=== PATIENT | female | born 1955 | race Caucasian/White ===

== ENCOUNTER 2021-06-15 01:30 | Day surgery (SDC) | payer MEDICARE, SELFPAY ==
[2021-06-03 10:37] VITALS: BMI 41.5
--- NOTE | 2021-06-15 10:13 | WPDANESEPPF ---
Anes - Initial Pre Proc Eval Procedure: Operation Date: 06/15/21 14:00 Proposed Procedures p Screening Colonoscopy - Cosme Singh MD Date/Time: 06/15/21 10:13 Surgeon: Cosme Singh MD Pre Op Diagnosis: neoplasm screening, family hx colon CA Patient Data Age: 65 Gender: F Height: 1.59 m Weight: 104.6 kg Allergies Allergy/AdvReac Type Severity Reaction Status Date / Time No Known Allergies Allergy Verified 06/15/21 13:02 Home Medications Medication Instructions Recorded Confirmed Type ibuprofen [Advil] 200 mg PO DAILY 06/03/21 06/15/21 History io-ve-dzkn-FA-Ca carb-vit K 1 tablet PO DAILY 06/03/21 06/03/21 History [One-A-Day Womens Formula] phentermine 19 mg PO DAILY 06/03/21 06/03/21 History Patient hx anesthesia problems: none Family hx anesthesia problems: none Results Review: All pre-operative results and documents have been reviewed as part of the pre-operative evaluation. [facility] Past Medical History Medical History (Updated 06/15/21 @ 10:14 by Jhon Devine MD) Arthritis Diabetes Morbid obesity with BMI of 40.0-44.9, adult Social History Social History Smoking packs per day: 0.75 Smoking cigarettes per day: 15.0 Years smoked: 21 Smoking pack-years: 15.75 Smoking status: Former smoker Tobacco type: cigarettes Smoking end date: 08/01/98 Alcohol intake: never Substance use: never Substance use type: does not use Living arrangements: alone Spiritual care concerns: No Anes - Eval Final PreProcedure Day of Procedure 06/15/21 10:13 Patient weight: obese Heart: regular rate and rhythm Lungs: clear to auscultation and normal air movement Airway: Mallampati scale class II Neurological: alert and oriented Last oral intake: >/= 8 hours ASA classification: III Emergent: no Anesthetic plan: proceed Anesthesia type and monitoring: general GIVS Results Review: All pre-operative results and documents have been reviewed as part of the pre-operative evaluation. Informed Consent: The patient's anesthetic plan and its attendant risks and benefits were discussed with the patient/family/POA. Questions were solicited and answers provided to the satisfaction of the patient/family/POA.
[2021-06-15 13:03] VITALS: BP 142/100; PULSE 76; RESP 22; TEMP 36.7; O2SAT 96; BMI 40.6
[2021-06-15] MEDS: LACTATED RINGERS 1,000 ML 150 ML IV CONT (13:12)
--- NOTE | 2021-06-15 13:17 | WPDGICN ---
Assessment and Plan Assessment and plan (1) Family history of colon cancer in mother: Code(s): Z80.0 - Family history of malignant neoplasm of digestive organs Status: Acute Assessment and Plan: Patient's mother had colon cancer. Plan is for patient to have screening colonoscopy now and at 5 year intervals. (2) Morbid obesity with BMI of 40.0-44.9, adult: Code(s): E66.01 - Morbid (severe) obesity due to excess calories; Z68.41 - Body mass index [BMI] 40.0-44.9, adult Status: Acute Assessment and Plan: Weight loss strongly encouraged. GI Consult Note Consult date/time: 06/15/21 13:17 HPI: Amber Naranjo is a 65 year old female Presents for screening colonoscopy. Patient's family history is significant that her mother had colon cancer. Patient states that her own weight appetite and bowel movements are normal. She denies abdominal pain. She has had no bleeding. Patient presents today for colonoscopy. Last colonoscopy 10 years ago was unremarkable. Review of Systems Review of Systems: All systems reviewed & are unremarkable except as noted in HPI and below PMFSH Past Medical History Medical History (Updated 06/15/21 @ 13:18 by Cosme Signh MD) Arthritis Diabetes Morbid obesity with BMI of 40.0-44.9, adult Social History Social History Smoking packs per day: 0.75 Smoking cigarettes per day: 15.0 Years smoked: 21 Smoking pack-years: 15.75 Smoking status: Former smoker Tobacco type: cigarettes Smoking end date: 08/01/98 Alcohol intake: never Substance use: never Substance use type: does not use Living arrangements: alone Spiritual care concerns: No Meds Home Medications and Allergies Home Medications Medication Instructions Recorded Confirmed Type ibuprofen [Advil] 200 mg PO DAILY 06/03/21 06/15/21 History ec-nu-numq-FA-Ca carb-vit K 1 tablet PO DAILY 06/03/21 06/03/21 History [One-A-Day Womens Formula] phentermine 19 mg PO DAILY 06/03/21 06/03/21 History Allergies Allergy/AdvReac Type Severity Reaction Status Date / Time No Known Allergies Allergy Verified 06/15/21 13:02 Vital Signs Vital Signs - 24 hr 06/15/21 13:03 Temperature 98.1 F Pulse Rate 76 Respiratory Rate 22 H Blood Pressure 142/100 H Pulse Oximetry 96 Exam Narrative: Physical exam reveals patient to be alert. Vital signs stable. HEENT exam is unremarkable. Patient is anicteric. Lungs are clear to auscultation and percussion. Heart is without murmur or extra sounds. Abdominal exam bowel sounds are present soft nontender with no organomegaly. Digital external rectal exam is normal.
[2021-06-15 13:47] VITALS: BP 139/92; PULSE 95; RESP 25; O2SAT 100
[2021-06-15 13:57] VITALS: BP 125/84; PULSE 76; RESP 19; O2SAT 96
[2021-06-15 14:07] VITALS: BP 133/88; PULSE 75; RESP 247; O2SAT 95
== END 2021-06-15 14:18 | disposition home or self-care (01) ==
PROVIDERS: PCP Family Medicine Adolescent Medicine; Visit Provider Internal Medicine Gastroenterology
PROC: 0DJD8ZZ Inspection of Lower Intestinal Tract, Via Natural or Artificial Opening Endoscopic (ICD-10-PCS; CPT 45378; principal; 2021-06-15 14:00)
DX: Z12.11 Encounter for screening for malignant neoplasm of colon (principal); D12.2 Benign neoplasm of ascending colon; K64.8 Other hemorrhoids; K57.30 Diverticulosis of large intestine without perforation or abscess without bleeding; Z80.0 Family history of malignant neoplasm of digestive organs; E11.9 Type 2 diabetes mellitus without complications; E66.01 Morbid (severe) obesity due to excess calories; Z68.41 Body mass index [BMI] 40.0-44.9, adult; Z87.891 Personal history of nicotine dependence
CPT/HCPCS: 45385; 88305; J2001; J2704; J7120

== ENCOUNTER 2022-08-17 14:17 | Outpatient (CLI) | payer MEDICARE, SELFPAY ==
[2022-08-19 20:47] LABS: Anti Cyclic Citrullinated Pept <16 Units (<20)
[2022-08-20 14:44] LABS: Anti Nuclear Antibody Pattern Nuclear, Speckled; Anti Nuclear Antibody Titer 1:40 (Negative)
== END 2022-08-17 14:18 | disposition home or self-care (01) ==
LOC: ANHLAB 14:18
PROVIDERS: PCP Family Medicine Adolescent Medicine; Visit Provider Internal Medicine
DX: M19.90 Unspecified osteoarthritis, unspecified site (principal)
CPT/HCPCS: 36415; 86038; 86039; 86200

== ENCOUNTER → 2022-08-24 12:53 | Outpatient (CLI) | payer MEDICARE, SELFPAY ==
--- NOTE | ~2022-08-24 | MM_ITS ---
EXAMINATION: MM screening fernando BI w tommie HISTORY: Screening mammogram TECHNIQUE: Craniocaudal and mediolateral oblique 3-D tomosynthesis images were obtained and synthetic 2-D images were generated. CAD analysis was submitted and interpreted. COMPARISON: 03/22/2013 bilateral screening mammogram BREAST PARENCHYMAL COMPOSITION: The breasts are almost entirely fatty. FINDINGS: Occasional stable bilateral low-density circumscribed opacities, benign. Occasional benign calcifications. There is no evidence of suspicious mass, calcification, or architectural distortion t o suggest malignancy in either breast. There has been no suspicious interval change. IMPRESSION: 1. No mammographic evidence of malignancy. 2. Recommend routine screening mammography in one year. BI-RADS Category 2: Benign finding(s). Reviewed, dictated and finalized at location A. PAINTER
== END ==
PROVIDERS: PCP Family Medicine Adolescent Medicine; Visit Provider Physician Assistant
DX: Z12.31 Encounter for screening mammogram for malignant neoplasm of breast (principal)
CPT/HCPCS: 77063; 77067

== ENCOUNTER → 2022-08-24 12:56 | Outpatient (CLI) | payer MEDICARE, SELFPAY ==
--- NOTE | ~2022-08-24 | XR_ITS ---
EXAM: XR knee RT 3V, XR knee LT 3V DATE: 08/24/2022 14:00 HISTORY: M19.90 - Unspecified osteoarthritis, unspecified site . COMPARISON: None available. FINDINGS: Normal mineralization. No fracture or dislocation. No lytic or blastic lesion. Severe left and mild right medial joint space narrowing. Tricompartmental osteophytosis bilaterally, severe in t he medial compartment on the left. No erosion or periosteal change. Soft tissues within normal limits . Small volume left and trace right joint effusions. IMPRESSION: Bilateral knee osteoarthritis, severe in the medial compartment of the left knee. Reviewed, dictated and finalized at location K. O ACCOMPANIST IMPRESSION: Bilateral knee osteoarthritis, severe in the medial compartment of the left knee.
--- NOTE | ~2022-08-24 | XR_ITS ---
EXAM: XR shoulder LT min 2V DATE: 08/24/2022 14:00 HISTORY: M19.90 - Unspecified osteoarthritis, unspecified site . COMPARISON: None available. FINDINGS: Normal mineralization. No fracture or dislocation. No lytic or blastic lesion. Mild degene rative change at the AC joint and glenohumeral joint. No erosion or periosteal change. Soft tissues w ithin normal limits. IMPRESSION: Polyarticular osteoarthritis of the shoulder. Reviewed, dictated and finalized at location K. RUCTIONAL SERVICES SPECIALIST
--- NOTE | ~2022-08-24 | XR_ITS ---
EXAM: XR hand BI arthritis min 3V DATE: 08/24/2022 14:00 HISTORY: M19.90 - Unspecified osteoarthritis, unspecified site . COMPARISON: None available. FINDINGS: Normal mineralization. Bilateral old ulnar styloid fractures. No acute fracture or disloca tion. No lytic or blastic lesion. Scattered mild narrowing, subchondral sclerosis, and osteophytosis in the DRUJ's, DIPs, PIPs, MCPs, thumb interphalangeal joints, and trapeziometacarpal joints bilatera lly. No erosion or periosteal change. Soft tissues within normal limits. 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 Reviewed, dictated and finalized at location K. RD PRODUCER
== END ==
PROVIDERS: PCP Family Medicine Adolescent Medicine; Visit Provider Internal Medicine
DX: M19.042 Primary osteoarthritis, left hand (principal); M19.041 Primary osteoarthritis, right hand; M19.012 Primary osteoarthritis, left shoulder; M17.0 Bilateral primary osteoarthritis of knee
CPT/HCPCS: 73030; 73130; 73562

== ENCOUNTER 2025-04-16 13:35 | Outpatient (CLI) | payer MEDICARE, SELFPAY ==
--- NOTE | ~2025-04-16 | MM_ITS ---
EXAMINATION: MM screening fernando BI w tommie HISTORY: Screening TECHNIQUE: Craniocaudal and mediolateral oblique 3-D tomosynthesis images were obtained and synthetic 2-D images were generated. CAD analysis was submitted and interpreted. COMPARISON: 08/14/2022 BREAST PARENCHYMAL COMPOSITION: Not Dense: The breasts are almost entirely fatty. FINDINGS: There is no evidence of suspicious mass, calcification, or architectural distortion to suggest malignancy. There has been no suspicious interval change. IMPRESSION: 1. No mammographic evidence of malignancy. Recommend routine screening mammography in one year. BI-RADS Category 2: Benign finding(s) Reviewed, dictated and finalized at location Q. IMPRESSION: 1. No mammographic evidence of malignancy. Recommend routine screening mammogra phy in one year. BI-RADS Category 2: Benign finding(s)
--- NOTE | ~2025-04-16 | DEXA_ITS ---
Bone Density Report Name: VIKASH SHRESTHA Age: 69 Sex: Female Ethnicity: White Date of : 1955 Indication: postmenopausal; screening for osteoporosis; rheumatoid arthritis; Referring Provider: CARINA GONZALEZ Study: Bone densitometry was performed. Exam Date: April 16, 2025 Accession number: [id number] Bone Density: Region BMD T-score Z-score Classification AP Spine(L1-L4) 1.201 1.4 3.6 Normal Femoral Neck (Left) 0.803 -0.4 1.5 Normal Total Hip (Left) 1.147 1.7 3.3 Normal Femoral Neck (Right) 0.915 0.6 2.5 Normal Total Hip (Right) 1.146 1.7 3.2 Normal Femoral Neck Mean 0.859 0.1 2.0 Normal Total Hip Mean 1.146 1.7 3.3 Normal World Health Organization criteria for BMD impression classify patients as: Normal (T-score at or above -1.0), Osteopenia (T-score between -1.0 and -2.5), or Osteoporosis (T-score at or below -2.5). 10-year Fracture Risk: FRAX not reported because: All T-scores for Spine Total, Hip Total, Femoral Neck at or above -1.0 Clinical Information Provided by Patient: Has rheumatoid arthritis Has used the following medications: Vitamin D, Calcium Patient maximum height was 62 Menopause Age: 40 No regular weight bearing exercise Does not regularly consume dairy products Onset of menses at age 11 Impression: The patient has normal bone mass. Discussion: BONE DENSITY IS ABOVE THE MINIMUM DESIRABLE LEVEL AT ALL SKELETAL SITES TESTED. This patient?s bone mineral density is above the minimum desirable level (T-score -1.0 or better) at all sites measured. The patient should follow a healthful lifestyle (good nutrition with adequate calcium and vitamin D, and appropriate weight-bearing exercise). Follow-Up: Consider repeating this study in 5 years or sooner if there is some new clinical indication. Reported by: ROSELINE on 04/18/2025 10:11:00 AM. Reviewed, dictated and finalized at location A.
== END 2025-04-16 13:36 | disposition home or self-care (01) ==
LOC: CHSIMG 13:36
PROVIDERS: PCP Family Medicine Adolescent Medicine; Visit Provider Family Medicine Adolescent Medicine
DX: Z12.31 Encounter for screening mammogram for malignant neoplasm of breast (principal); Z78.0 Asymptomatic menopausal state
CPT/HCPCS: 77063; 77067; 77080